=== PATIENT | female | born 1970 | race Caucasian/White ===

== ENCOUNTER 2019-09-24 11:12 | Outpatient (CLI) | payer OTHER, SELFPAY ==
--- NOTE | ~2019-09-24 | XR_ITS ---
EXAMINATION: XR knee LT 3V DATE: 09/24/2019 12:25 INDICATION: Left knee pain TECHNIQUE: Three views of the left knee were obtained. COMPARISON: None. FINDINGS: Alignment is normal. No fracture or osteochondral lesion. There is mild tricompartmental os teoarthritis characterized by tiny marginal osteophytes. No joint effusion/synovitis. Soft tissues a re unremarkable. IMPRESSION: 1. Mild osteoarthritis. Reviewed, dictated and finalized at location A. RATHLETE IMPRESSION: 1. Mild osteoarthritis.
== END 2019-09-24 11:13 | disposition home or self-care (01) ==
LOC: ANHIMG 11:19
PROVIDERS: PCP Internal Medicine; Visit Provider Internal Medicine
DX: M17.12 Unilateral primary osteoarthritis, left knee (principal)
CPT/HCPCS: 73562

== ENCOUNTER 2020-10-09 09:16 | Outpatient (CLI) | payer OTHER, SELFPAY ==
--- NOTE | ~2020-10-09 | XR_ITS ---
EXAMINATION: XR chest 2V 10/09/2020 09:28 INDICATION: Personal history of nicotine dependence PROCEDURE: 2 view chest COMPARISON: 01/12/2019 FINDINGS: The lungs are clear. The cardiomediastinal silhouette is within normal limits. There are no pleural effusions. There is no pneumothorax suspected. IMPRESSION: 1: NO ACUTE CARDIOPULMONARY DISEASE. Reviewed, dictated and finalized at location B. AL WELFARE RESEARCH WORKER
== END 2020-10-09 09:17 | disposition home or self-care (01) ==
LOC: ANHIMG 09:19
PROVIDERS: PCP Internal Medicine; Visit Provider Nurse Practitioner
DX: Z12.2 Encounter for screening for malignant neoplasm of respiratory organs (principal); Z87.891 Personal history of nicotine dependence
CPT/HCPCS: 71046

== ENCOUNTER 2022-07-29 00:18 | Day surgery (SDC) | payer OTHER, SELFPAY ==
[2022-07-15 12:44] VITALS: BMI 36.6
--- NOTE | 2022-07-28 15:19 | PM.HPGS ---
History of Present Illness History of Present Illness Consent: Risks, benefits, and alternatives have been discussed and questions answered. Patient agrees to proceed with procedure. Chief complaint: neoplasm screening Narrative: Anne Marie Cm is a 51 year old female Referred for colon cancer screening. Review of Systems Review of Systems: All systems reviewed & are unremarkable except as noted in HPI and below PMFSH Past Medical History Medical History Former tobacco use Family History Family History Mother Patient's mother is in good health Sibling Patient's sister is in good health Patient's brother is in good health Father Family history of malignant neoplasm of bone Patient's father is Other Diabetes mellitus Family history of cardiovascular disease Social History Social History Smoking packs per day: 1 Smoking cigarettes per day: 20.0 Years smoked: 30 Smoking pack-years: 30.00 Smoking status: Former smoker Tobacco type: cigarettes Smoking end date: 04/24/16 Alcohol intake: never Alcohol use details: social Substance use: never Substance use type: does not use Living arrangements: with family Spiritual care concerns: No Meds Home Medications and Allergies Home Medications Medication Instructions Recorded Confirmed Type cholecalciferol (vitamin D3) 125 125 mcg PO DAILY 10/02/20 07/15/22 History mcg (5,000 unit) capsule omeprazole 20 mg capsule,delayed 20 mg PO DAILY 10/02/20 07/15/22 History release omega-3 acid ethyl esters 1 gram 1 cap PO DAILY #90 caps 04/05/22 07/15/22 Rx capsule (Lovaza) epinephrine 1 mg/mL injection kit 0.3 mg (0.3 mL) subcut Q20M PRN 04/13/22 07/15/22 Rx anaphylaxis #1 ea amlodipine 5 mg tablet (Norvasc) 5 mg PO DAILY #90 tabs 05/27/22 07/15/22 Rx ondansetron HCl 4 mg tablet 4 mg PO Q8H PRN nausea and 06/14/22 07/15/22 Rx vomiting #20 tabs valsartan 320 1 tablet PO DAILY #90 tabs 07/01/22 07/29/22 Rx mg-hydrochlorothiazide 12.5 mg tablet Allergies Allergy/AdvReac Type Severity Reaction Status Date / Time bee venom protein (honey bee) Allergy Severe Anaphylaxis Verified 07/29/22 09:46 erythromycin base Allergy Mild Heavy Verified 07/29/22 09:46 chest Exam Const: General: alert Orientation/consciousness: patient oriented x3 Resp: Auscultation: clear to auscultation bilaterally Cardio: Rhythm: regular rhythm GI: GI Palp: Yes Soft to palpation and No Tenderness to palpation present (GI) Neuro: General: patient oriented x3 Assessment and Plan Assessment and plan (1) Screening for colon cancer: Code(s): Z12.11 - Encounter for screening for malignant neoplasm of colon Status: Acute Assessment and Plan: Colonoscopy with possible biopsy or polypectomy or cautery or injection of substances.
[2022-07-29 09:48] VITALS: BP 139/89; PULSE 78; RESP 20; TEMP 36.2; O2SAT 98; BMI 36.8
[2022-07-29] MEDS: LACTATED RINGERS 1,000 ML 150 ML IV CONT (09:51)
--- NOTE | 2022-07-29 10:23 | WPDANESEPPF ---
Anes - Initial Pre Proc Eval Procedure: Operation Date: 07/29/22 10:30 Proposed Procedures p Screening Colonoscopy - James Onofre MD Date/Time: 07/29/22 10:23 Surgeon: James Onofre MD Pre Op Diagnosis: neoplasm screening Patient Data Age: 51 Gender: F Height: 1.57 m Weight: 91.3 kg Last Vital Signs Temp 36.2 C L 07/29/22 09:48 Pulse 78 07/29/22 09:48 Resp 20 07/29/22 09:48 BP 139/89 07/29/22 09:48 Pulse Ox 98 07/29/22 09:48 O2 Del Method Room Air 07/29/22 09:48 Allergies Allergy/AdvReac Type Severity Reaction Status Date / Time bee venom protein (honey bee) Allergy Severe Anaphylaxis Verified 07/29/22 09:46 erythromycin base Allergy Mild Heavy Verified 07/29/22 09:46 chest Home Medications Medication Instructions Recorded Confirmed Type cholecalciferol (vitamin D3) 125 125 mcg PO DAILY 10/02/20 07/15/22 History mcg (5,000 unit) capsule omeprazole 20 mg capsule,delayed 20 mg PO DAILY 10/02/20 07/15/22 History release omega-3 acid ethyl esters 1 gram 1 cap PO DAILY #90 caps 04/05/22 07/15/22 Rx capsule (Lovaza) epinephrine 1 mg/mL injection kit 0.3 mg (0.3 mL) subcut Q20M PRN 04/13/22 07/15/22 Rx anaphylaxis #1 ea amlodipine 5 mg tablet (Norvasc) 5 mg PO DAILY #90 tabs 05/27/22 07/15/22 Rx ondansetron HCl 4 mg tablet 4 mg PO Q8H PRN nausea and 06/14/22 07/15/22 Rx vomiting #20 tabs valsartan 320 1 tablet PO DAILY #90 tabs 07/01/22 07/29/22 Rx mg-hydrochlorothiazide 12.5 mg tablet Patient hx anesthesia problems: none Family hx anesthesia problems: none Results Review: All pre-operative results and documents have been reviewed as part of the pre-operative evaluation. [facility] Past Medical History Medical History Former tobacco use Gastroesophageal reflux disease Hypertension Family History Family History Mother Patient's mother is in good health Sibling Patient's sister is in good health Patient's brother is in good health Father Family history of malignant neoplasm of bone Patient's father is Other Diabetes mellitus Family history of cardiovascular disease Social History Social History Smoking packs per day: 1 Smoking cigarettes per day: 20.0 Years smoked: 30 Smoking pack-years: 30.00 Smoking status: Former smoker Tobacco type: cigarettes Smoking end date: 04/24/16 Alcohol intake: never Alcohol use details: social Substance use: never Substance use type: does not use Living arrangements: with family Spiritual care concerns: No Anes - Eval Final PreProcedure Day of Procedure 07/29/22 10:23 Patient weight: obese Heart: regular rate and rhythm Lungs: clear to auscultation Airway: Mallampati scale class II Neurological: alert and oriented Last oral intake: >/= 8 hours ASA classification: II Emergent: no Anesthetic plan: proceed Anesthesia type and monitoring: general GIVS and standard monitoring Results Review: All pre-operative results and documents have been reviewed as part of the pre-operative evaluation. Informed Consent: The patient's anesthetic plan and its attendant risks and benefits were discussed with the patient/family/POA. Questions were solicited and answers provided to the satisfaction of the patient/family/POA.
[2022-07-29 10:53] VITALS: BP 107/58; PULSE 87; RESP 18; O2SAT 98
[2022-07-29 11:03] VITALS: BP 119/70; PULSE 75; RESP 18; O2SAT 98
[2022-07-29 11:13] VITALS: BP 131/83; PULSE 74; RESP 20; O2SAT 98
== END 2022-07-29 11:24 | disposition home or self-care (01) ==
PROVIDERS: PCP Internal Medicine; Visit Provider Internal Medicine Gastroenterology
PROC: 0DJD8ZZ Inspection of Lower Intestinal Tract, Via Natural or Artificial Opening Endoscopic (ICD-10-PCS; CPT 45378; principal; 2022-07-29 10:30)
DX: Z12.11 Encounter for screening for malignant neoplasm of colon (principal); K63.5 Polyp of colon; I10 Essential (primary) hypertension; Z87.891 Personal history of nicotine dependence; E66.9 Obesity, unspecified; Z68.36 Body mass index [BMI] 36.0-36.9, adult; Z79.899 Other long term (current) drug therapy; Z80.8 Family history of malignant neoplasm of other organs or systems
CPT/HCPCS: 45380; 88305; J2704; J7120

== ENCOUNTER 2023-12-08 07:02 | Outpatient (CLI) | payer OTHER, SELFPAY ==
--- NOTE | ~2023-12-08 | MM_ITS ---
EXAMINATION: MM screening nkechi BI w jose HISTORY: Screening mammogram TECHNIQUE: Craniocaudal and mediolateral oblique 3-D tomosynthesis images were obtained and synthetic 2-D images were generated. CAD analysis was submitted and interpreted. COMPARISON: No prior mammogram is available for comparison at this institution. BREAST PARENCHYMAL COMPOSITION: There are scattered areas of fibroglandular density. FINDINGS: There is no evidence of suspicious mass, calcification, or architectural distortion to sugg est malignancy in either breast. IMPRESSION: 1. No mammographic evidence of malignancy. 2. Recommend routine screening mammography in one year. BI-RADS Category 1: Negative Reviewed, dictated and finalized at location A.
== END 2023-12-08 07:03 ==
LOC: MICIMG 07:03
PROVIDERS: PCP Obstetrics & Gynecology; Visit Provider Obstetrics & Gynecology
DX: Z12.31 Encounter for screening mammogram for malignant neoplasm of breast (principal)
CPT/HCPCS: 77063; 77067

== ENCOUNTER 2024-09-06 09:26 | Outpatient (CLI) | payer OTHER, SELFPAY ==
--- NOTE | ~2024-09-06 | MMUS_ITS ---
EXAMINATION: MM diagnostic nkechi BI w jose, US breast LT limited, US breast RT complete HISTORY: Palpable left breast abnormality. TECHNIQUE: Additional 3-D tomosynthesis images of the breasts were performed and synthetic 2-D images were generated. CAD analysis was submitted and interpreted. High resolution complete right and limit ed left breast ultrasound was performed. COMPARISON: Comparison to multiple prior studies sequentially, with oldest reviewed study dated Garcia rison to multiple prior studies sequentially, with oldest reviewed study dated 03/12/2019. . BREAST PARENCHYMAL COMPOSITION: Not dense: There are scattered areas of fibroglandular density. FINDINGS: MAMMOGRAPHIC FINDINGS: There are no suspicious masses, calcifications or architectural distortion in either breast to sugges t malignancy. ULTRASOUND: Complete US of all 4 quadrants of the right breast/s and retroareolar region was reviewed. Normal het erogeneous echotexture without focal solid or cystic mass. Limited left breast ultrasound: Normal heterogeneous echotexture without focal mass. IMPRESSION: 1. No evidence for malignancy in either breast. 2. Routine yearly screening mammogram and regular clinical breast examination are recommended. BI-RADS Category 1: Negative Reviewed, dictated and finalized at location B. L OPERATION MANAGER IMPRESSION: 1. No evidence for malignancy in either breast. 2. Routine yearly screening mammogram and regular clinical breast examination a re recommended. BI-RADS Category 1: Negative IMPRESSION: 1. No evidence for malignancy in either breast. 2. Routine yearly screening mammogram and regular clinical breast examination a re recommended. BI-RADS Category 1: Negative
== END 2024-09-06 09:27 | disposition home or self-care (01) ==
LOC: MICIMG 09:26
PROVIDERS: PCP Nurse Practitioner Family; Visit Provider Obstetrics & Gynecology
DX: R92.8 Other abnormal and inconclusive findings on diagnostic imaging of breast (principal); N63.25 Unspecified lump in the left breast, overlapping quadrants
CPT/HCPCS: 76641; 76642; 77062; 77066; G0279

== ENCOUNTER 2025-01-28 09:53 | Outpatient (CLI) | payer OTHER, SELFPAY ==
--- NOTE | 2025-01-28 10:36 | ECG_ITS ---
Test Date: 2025-01-28 10:55:08 Measurements Intervals [place] Rate: 65 P: -11 OK: 134 QRS: 14 QRSD: 96 T: 20 QT: 383 QTc: 400 Interpretive Statements SINUS RHYTHM WITH OCCASIONAL VENTRICULAR PREMATURE COMPLEXES INCOMPLETE RIGHT BUNDLE BRANCH BLOCK BASELINE ARTIFACT- I, II, III, AVR, AVF, V3-V5 BORDERLINE ECG No previous ECG available for comparison Electronically Signed On 01-28-2025 11:47:16 CDT by Craig Wright D.O.
--- OUTSIDE RECORDS SUMMARY | 2025-01-28 10:44 | XMS_ITS | Referral Summary ---
Author Organization [facility] Address [address] [place] [address] Care Team Providers Care Peoplesoft Functional Analyst Name Role Phone Tylor Rahman DO Primary Care Provider [phone] Allergies Active Allergy Reactions Criticality Noted Date Comments Bee Pollens Anaphylaxis High 04/09/2019 Erythromycin Medications cholecalcifer ol (VITAMIN D-3) 5,000 unit capsule Take 5,000 Units by mouth daily Active amLODIPine (NORVASC) 5 mg tablet Take 5 mg by mouth daily 02/08/20 22 Active omega-3 fatty acids (LOVAZA) 1 gram capsule Take 1 g by mouth daily 02/08/20 22 Active hydroCHLOROth iazide (HYDRODIURIL) 12.5 mg tablet hydrochlorothiazide 12.5 mg tablet Active EPINEPHrine 0.3 mg/0.3 mL auto-injectio n syringe epinephrine 0.3 mg/0.3 mL injection, auto-injector Active [place], 28, 0.15-0.02 mgx21 /0.01 mg x 5 per tablet Take 1 tablet by mouth daily 02/28/20 22 Active dexAMETHasone (DECADRON) 0.1 % ophthalmic solution dexamethasone sodium phosphate 0.1 % eye drops Active Active Problems Problem Noted Date Diagnosed Date Class 1 obesity due to exces s calories without serious comorbidity with body mass index (BMI) of 34.0 to 34.9 in adult 10/22/2019 Localized edema 05/08/2019 Abnormal stress test 04/09/2019 Dizziness 04/09/2019 Chronic fatigue 04/09/2019 Orthostasis 04/09/2019 Immunizations Immunization Administration Dates Next Due Pneumococcal Conjugate PCV 13 09/19/2014 Tdap 10/10/2014 Social History Tobacco Use Types Packs/Day Years Used Date Smoking Tobacco: Former Cigarettes Q uit: 04/25/2016 Smokeless Tobacco: Never Alcohol Use Standard Drinks/Week Comments Yes 0 (1 standard drink = 0.6 oz pur e alcohol) Comments No Sex and Gender Information Value Date Recorded Sex Assigned at Not on file 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 Gender Identity Not on file Sexual Orientation Not on file Last Filed Vital Signs Vital Sign Reading Time Taken Comments Blood Pressure 146/88 04/01/2022 8:25 AM CDT Pulse 73 04/01/2022 8:15 AM CDT Temperature 37 C (98.6 F) 03/04/2022 9:12 AM CDT Respiratory Rate 16 04/09/2019 11:38 AM CDT Oxygen Saturation 95% 03/04/2022 9:12 AM CDT Inhaled Oxygen Concentration - - Weight 91.2 kg (201 lb) 04/01/2022 8:15 AM CDT Height 157.5 cm (5' 2) 04/01/2022 8:15 AM CDT Body Mass Index 36.76 04/01/2022 8:15 AM CDT Plan of Treatment Not on file Insurance [employer] Care Teams Peoplesoft Functional Analyst Relationship Specialty Start Date End Date Tylor Rahman DO PCP - General Internal Medicine 03/30/19
--- OUTSIDE RECORDS SUMMARY | 2025-01-28 10:44 | XMS_ITS | Clinical Summary ---
Author Organization [facility] Address [address] [place] [address] Care Team Providers Care Sap Pi Architect Name Role Phone Tylor Rahman DO Primary Care Provider [phone] Allergies Active Allergy Reactions Criticality Noted Date [...] Pneumococcal Conjugate PCV 13 09/19/2014 Tdap 10/10/2014 Surgical History Surgery Date Site/Laterality Comments OTHER SURGICAL HISTORY : Tubal Pregency Medical History Medical History Date Comments Dyslipidemia Family History Medical History Relation Name Comments Stent Brother 2 Coronary Stent Placement; Coronary artery disease Mother Larisa nary Artery Bypass Graft; Coronary artery disease Mother's Sister 2 Coronary Artery Bypass Graft; Relation Name Status Comments Brother 1 Alive Brother 2 Mother Alive Mother's Sister 1 Alive Mother's Sister 2 Social History Tobacco Use Types Packs/Day Years Used Date Smoking Tobacco: Former Cigarettes Q uit: 04/25/2016 Smokeless Tobacco: Never Alcohol Use Standard Drinks/Week Comments Yes 0 (1 standard drink = 0.6 oz pur e alcohol) Comments No Sex and Gender Information Value Date Recorded Sex Assigned at Not on file 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 Gender Identity Not on file Sexual Orientation Not on file Obstetrics History Last Filed Vital Signs Vital Sign Reading [...] 04/01/2022 8:15 AM CDT Plan of Treatment Health Maintenance Due Date Last Done Comments Breast Cancer Screening-Mammogram 1971 Cervical Cancer Screening 1971 Colon Cancer Screening-Colonoscopy 1971 Depression Screening 1971 Hepatitis C Screening 1971 Hepatitis B Screening 1989 Regular Well Visit/Exam 18-64 1989 Zoster Vaccine (1 of 2) 2021 DTaP/Tdap/Td Vaccine (2 - Td or Tdap) 10/10/2024 10/10/2014 Influenza Vaccine (Season Ended) 2025 Pneumococcal vaccine <65 Aged Out 09/19/2014 No longer eligible based on patient's age to complete this topic Insurance [employer] Care Teams Sap Pi Architect Relationship Specialty Start Date End Date Tylor Rahman DO PCP - General Internal Medicine 03/30/19
--- OUTSIDE RECORDS SUMMARY | 2025-01-28 10:44 | XMS_ITS | Clinical Summary ---
Author Organization [facility] Address [address] [place] [address] Care Team Providers Care Global Coordinator Name Role Phone Unavailable Primary Care Provider Unavailabl e Source Comments [facility],non-owned Affiliates and Associated Physician Practices is amultiple site organization consisting of ambulatory clinics and hospital sitesin [place], [place], [place] and [place]. This disclosure is being madepursuant to the Care Everywhere program and may not contain all information available regarding this patient. Last updated 18.[facility] Allergies Active Allergy Reactions Criticality Noted Date Comments Erythromycin Other 10/26/2017 Chest pressure Medications * Be aware that medications may not be up to date on this document. Alwaysverify current medications with the patient. 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 Gender Identity Not on file Sexual Orientation Not on file Last Filed Vital Signs Vital Sign Reading Time Taken Comments Blood Pressure 130/86 10/26/2017 4:10 PM REMELT FURNACE EXPEDITER Pulse 94 07/10/2019 9:27 AM REMELT FURNACE EXPEDITER Temperature 36.7 C (98.1 F) 07/10/2019 9:27 AM REMELT FURNACE EXPEDITER Respiratory Rate 16 07/10/2019 9:27 AM REMELT FURNACE EXPEDITER Oxygen Saturation 97% 10/26/2017 4:10 PM REMELT FURNACE EXPEDITER Inhaled Oxygen Concentration - - Weight 83 kg (183 lb) 07/10/2019 9:27 AM REMELT FURNACE EXPEDITER Height 157.5 cm (5' 2) 07/10/2019 9:27 AM REMELT FURNACE EXPEDITER Body Mass Index 33.47 07/10/2019 9:27 AM REMELT FURNACE EXPEDITER Plan of Treatment Health Maintenance Due Date Last Done Comments COLOGUARD (AGES 45-75) - COL ON CA SCREENING 1971 COLON MONITORING 1971 COLONOSCOPY - COLON CA SCREENING 1971 CT COLONOGRAPHY - COLON CA SCREENING 1971 Colorectal Cancer Screening 1971 FIT - COLON CA SCREENING 1971 FLEX SIG - COLON CA SCREENING 1971 LIPID TESTING 1971 MAMMOGRAM 1971 HIV SCREENING 1986 HEPATITIS C SCREENING 08/06/1989 DTAP/TDAP/TD VACCINES (1 - Tdap) 1990 HEPATITIS B VACCINE (1 of 3 - 19+ 3-dose series) 1990 SCREENING FOR DIABETES 07/10/2019 PNEUMOCOCCAL VACCINE 50+ (1 of 1 - PCV) 2021 ZOSTER VACCINE (1 of 2) 2021 COVID-19 VACCINE (1 - 2023-2 5 season) 2024 DEPRESSION SCREENING 08/29/2024 INFLUENZA VACCINE (Season Ended) 2025 HIB VACCINE Aged Out No longer eligi ble based on patient's age to complete this topic HPV VACCINE Aged Out No longer eligi ble based on patient's age to complete this topic MENINGOCOCCAL (Group B) VACC INE SHARED DECISION-MAKING Aged Out No longer eligibl e based on patient's age to complete this topic MENINGOCOCCAL GROUPS A/C/Y/W VACCINE Aged Out No longer eligible b ased on patient's age to complete this topic Insurance [facility] [place] [address] [place] [address]
[2025-01-28 11:01] LABS: Basophils Absolute Auto 0.1 K/mm3 (0.0-0.1); Basophils Percent Auto 0.7 % (0.2-1.2); Eosinophils Absolute Auto 0.3 K/mm3 (0-0.3); Eosinophils Percent Auto 2.6 % (0-4.4); Hematocrit 42.3 % (37.0-47.0); Hemoglobin 13.6 g/dL (12.0-15.0); Immature Granulocyte Absolute 0.03 K/mm3 (0.00-0.031); Immature Granulocyte Percent A 0.3 % (0-0.5); Lymphocytes Absolute Auto 3.59 K/mm3 (0.9-3.2); Mean Corpuscular HGB Conc 32.2 g/dl (32-36); Mean Corpuscular Hemoglobin 29.1 pg (26-34); Mean Corpuscular Volume 90.6 fl (80-100); Mean Platelet Volume 10.6 fl (7.4-10.4); Monocytes Absolute Auto 0.8 K/mm3 (0.1-0.6); Monocytes Percent Auto 7.6 % (2.6-8.5); Neutrophils Absolute Auto 5.5 K/mm3 (1.3-6.7); Neutrophils Percent Auto 53.8 % (45.5-73.1); Platelet Count Result 266 k/mm3 (150-375); Red Blood Count 4.67 M/mm3 (4.2-5.4); Red Cell Distribution Width 13.4 % (11.5-14.5); White Blood Count 10.3 K/mm3 (4.5-10.0)
[2025-01-28 11:18] LABS: INR 0.9; Prothrombin Time 12.8 Seconds (11.1-14.7)
== END 2025-01-28 09:54 | disposition home or self-care (01) ==
LOC: ANHSURGERY 09:56
PROVIDERS: PCP Nurse Practitioner Family; Visit Provider Urology
DX: Z01.818 Encounter for other preprocedural examination (principal); I12.9 Hypertensive chronic kidney disease with stage 1 through stage 4 chronic kidney disease, or unspecified chronic kidney disease; N18.2 Chronic kidney disease, stage 2 (mild); I49.3 Ventricular premature depolarization; I45.10 Unspecified right bundle-branch block
CPT/HCPCS: 36415; 85025; 85610; 85730; 93005

== ENCOUNTER 2025-02-11 00:35 | Day surgery (SDC) | payer OTHER, SELFPAY ==
[2025-01-28 09:59] VITALS: BMI 36.3
--- NOTE | 2025-01-28 10:00 | PC.NURSE ---
Report to the Outpatient Waiting Room, entrance under the green pavilion located off [facility], at time __6 AM on date _02/11/25 . Planned Procedure Time: _7:30 AM .? Time changes happen often and if your time is changed the preop area will call you the afternoon before. - You and your visitor will be asked to self-screen and do not enter if you have any COVID symptoms. Please call surgeon if you need to reschedule. - A mask is optional within the hospital at this time. Patients may have clear liquids (water, carbonated beverages, clear teas, apple juice) until 3 hours prior to surgery ( 4:30 AM) with a maximum of 20 ounces. - No food from midnight until time of surgery and no smoking, or chewing tobacco (or any form of nicotine). No chewing gum, candy or mints. Take only the following medications with a SIP of water on the morning of surgery: ____NONE DO NOT STOP ANY OF YOUR OTHER PRESCRIPTION MEDICATIONS PRIOR TO SURGERY EXCEPT THE FOLLOWING Hold all vitamins and supplements for 3 days per anesthesiologist.LAST DOSE 02/07/25 Medications to discontinue per physician NONE Please no make-up, nail swedish, hairspray, perfume, deodorant, or body powder the day of surgery.? No jewelry (including any body piercings) or valuables the day of surgery, leave them at home.? Please take a shower or bath the night before, or the morning of, surgery with an antibacterial soap.? Wear comfortable, loose fitting clothing.? Children are encouraged to wear pajamas. - Jewelry must be removed prior to entering the operating room.? Rings and piercings that are not removed may be cut off. - The hospital will not accept responsibility for valuables.? - Please leave all valuables, including medications, at home the day of surgery. If you are going home after surgery, a licensed rolloff truck driver must drive you home.? - NO public transportation without another adult if you receive anesthesia. - We recommend that an adult stay with you for 24 hours following discharge. - We also recommend that you do not drive, make important decision, drink alcoholic beverages, or take any drugs that were not prescribed by your health care provider for at least 24 hours after your discharge time. For Pediatric surgeries, we recommend two adults accompany the child home. Follow any additional instructions given to you from your surgeon. VERBAL AND WRITTEN instructions given to _PATIENT and asked if any additional questions and then verbalized understanding. Patient advised to call surgeon office or pre surgery nurse liaison [phone] if any additional questions.
[2025-01-28 10:38] VITALS: BP 141/86; PULSE 80; RESP 18; TEMP 36.6; O2SAT 98
--- NOTE | 2025-02-08 08:59 | P.HP_ITS ---
H&P: HPI History of Present Illness Date/Time: 02/08/25 08:59 Chief Complaint: Pelvic organ prolapse Narrative: Note:?Anne Marie Cm is a 54-year-old female who presents for a follow-up visit. She was last seen in April 2021, at which time she was status post urethral sling for stress incontinence, which had resolved. She reports noticing a bulge in her vaginal area, which she discovered while wiping. She denies any blood in her urine or signs of infection. She has not experienced any difficulty with urination despite the prolapse. Anne Marie mentions that the bulge is bothersome, particularly during sexual activity, and expresses interest in having it fixed. She has discussed the issue with Dr. Cuca Lantigua, who recommended she see Dr. Luevano again. Anne Marie is considering surgical options to address the prolapse. A bladder scan was performed to assess for incomplete bladder emptying as a potential cause of voiding symptoms or urinary tract infection. Notes rare incontinence without sensory awareness denies stress incontinence Previous sling procedure in 2020 Occult stress incontinence noted with prolapse reduction Review of Systems Review of Systems: All systems reviewed & are unremarkable except as noted in HPI and below PMFSH Past Medical History Medical History Screening mammogram, encounter for Tubal Hypertension Former tobacco use Gastroesophageal reflux disease Family History Family History Mother Patient's mother is in good health Sibling Patient's sister is in good health Patient's brother is in good health Father Family history of malignant neoplasm of bone Patient's father is Other Diabetes mellitus Family history of cardiovascular disease Social History Social History Social History: Caffeine-decaf coffee Smoking packs per day: 1 Smoking cigarettes per day: 20.0 Years smoked: 30 Smoking pack-years: 30.00 Smoking status: Former smoker Tobacco type: cigarettes Smoking end date: 08/29/15 Alcohol intake: current Alcohol use details: social, occasionally Substance use: never Substance use type: does not use Do You Feel Safe in your Home?: Yes Lack of Transportation: No Lack of Food: Never True Current Housing: I Have Housing Concerned About Future Housing: No Difficulty Paying Gas/Electric Bills: No Difficulty Paying for Meds: No Currently Unemployed: No Education: High School Diploma/GED Difficulty w/ Childcare or Family Care: No Living arrangements: with family Occupation/Education: occupation 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 Gender identity (if verbalized by the patient): Female Sexual Orientation (if Verbalized by the Patient): Straight or Heterosexual Spiritual care concerns: No Agree to blood products: Yes Meds Home Medications and Allergies Home Medications ?Medication ?Instructions ?Recorded ?Confirmed ?Type cholecalciferol (vitamin D3) 125 125 mcg PO DAILY 10/02/20 01/28/25 History mcg (5,000 unit) capsule valsartan 320 See Rx Instructions .Route 08/20/24 01/28/25 Rx mg-hydrochlorothiazide 12.5 mg .COMPLEX #90 tabs tablet metformin 500 mg tablet See Rx Instructions .Route 11/02/24 01/28/25 Rx .COMPLEX #90 tabs magnesium 200 mg tablet 200 mg PO DAILY 12/27/24 01/28/25 History omega-3 acid ethyl esters 1 gram See Rx Instructions .Route 01/22/25 01/28/25 Rx capsule .COMPLEX #90 caps atorvastatin 20 mg tablet See Rx Instructions .Route 01/25/25 01/28/25 Rx .COMPLEX #90 tabs amlodipine 5 mg tablet (Norvasc) 5 mg PO QPM 01/28/25 01/28/25 History fluoxetine 10 mg capsule (Prozac) 10 mg PO QPM 01/28/25 01/28/25 History omeprazole 20 mg capsule,delayed 20 mg PO QPM 01/28/25 01/28/25 History release epinephrine 1 mg/mL injection kit 1 mg subcut Q20M PRN anaphylaxis 02/04/25 Rx #2 ea semaglutide 2 mg/dose (8 mg/3 mL) 2 mg (0.75 mL) subcut WEEKLY #9 mL 02/05/25 Rx subcutaneous pen injector (Ozempic) Allergies Allergy/AdvReac Type Severity Reaction Status Date / Time bee venom protein (honey bee) Allergy Severe Anaphylaxis Verified 01/28/25 10:00 erythromycin base Allergy Mild Heavy Verified 01/28/25 10:00 chest Exam Narrative: Note:? - Obese - Minimal urethral mobility - No mesh exposure - Cystocele just beyond the introitus wi th minimal rectocele - Loss of apical support with the cervix descending to zero Assessment and Plan Assessment and plan (1) Cystocele with incomplete uterovaginal prolapse: Code(s): N81.2 - Incomplete uterovaginal prolapse Status: Acute (2) NITIN (stress urinary incontinence, female): Code(s): N39.3 - Stress incontinence (female) (male) Status: Acute Plan Note:?ASSESSMENT: - Pelvic organ prolapse - Incontinence without awareness PLAN: - We discussed the treatment options for pelvic organ prolapse, including observation, pelvic floor muscle exercises, physical therapy, pessary usage, and surgery, as well as each approach's specific risks and benefits. She opted for a sacral colpopexy. - She understood the risks of bleeding, infection, recurrence of prolapse, mesh exposure, damage to the bowel or urinary tract, open conversion, de candace urinary urgency, urinary retention, post-operative stress urinary incontinence, dyspareunia, back pain, diskitis, and risks of anesthesia. In addition, she was provided written information on the etiology and treatment of pelvic organ prolapse. - After an extensive discussion, she agreed to proceed with surgery. -possible concomitant urethral sling
--- NOTE | 2025-02-10 12:50 | P.HP_ITS ---
H&P: HPI History of Present Illness Date/Time: 02/10/25 12:50 Chief Complaint: prolapse Narrative: Anne Marie is a 54yo postmenopausal P2042, LMP 04/2023 who presents to discuss surgery. She has a normal pap 07/2024. She has a h/o BTL. She was taking Viorele for dysmenorrhea and menstrual migraines, but stopped it after being diagnosed with HTN; now on 3 HTN medications. She has not had a cycle since Apr 2023. She reports her hot flashes are back, but is mostly bothered by the mood changes; has been having issues at work with coworkers. She tried veozah but had issues with the script. She does feel like her prolapse has worsened; can feel a ball of tissue at the opening now; has more tugging/pulling sensations. She is not routinely sexually active. Had a sling placed by Dr. Luevano for NITIN in 2020; very happy with it. She saw Dr. Luevano again and is recommending we proceed with surgery to fix the prolapse and she's ready. Review of Systems Constitutional: Constitutional: Denies chills, Denies fever(s) and Denies headache(s) Eyes: Eyes: Denies change in vision ENT: Denies dizziness and Denies headache(s) Cardiovascular: Cardiovascular: Denies chest pain and Denies dyspnea Respiratory: Respiratory: Denies cough and Denies dyspnea Gastrointestinal: Gastrointestinal: Denies abdominal pain and Denies change in stool character Genitourinary: Genitourinary: Denies abnormal vaginal bleeding, Reports pelvic pain, Reports prolapse symptoms, Denies vaginal discharge, Denies vaginal odor and Denies vaginal pruritus Neurologic: Denies dizziness and Denies headache(s) Psychiatric: Psychiatric: Denies anxiety and Denies depression [facility] Past Medical History Medical History Screening mammogram, encounter for Tubal Hypertension Former tobacco use Gastroesophageal reflux disease Family History Family History Mother Patient's mother is in good health Sibling Patient's sister is in good health Patient's brother is in good health Father Family history of malignant neoplasm of bone Patient's father is Other Diabetes mellitus Family history of cardiovascular disease Social History Social History Social History: Caffeine-decaf coffee Smoking packs per day: 1 Smoking cigarettes per day: 20.0 Years smoked: 30 Smoking pack-years: 30.00 Smoking status: Former smoker Tobacco type: cigarettes Smoking end date: 08/29/15 Alcohol intake: current Alcohol use details: social, occasionally Substance use: never Substance use type: does not use Do You Feel Safe in your Home?: Yes Lack of Transportation: No Lack of Food: Never True Current Housing: I Have Housing Concerned About Future Housing: No Difficulty Paying Gas/Electric Bills: No Difficulty Paying for Meds: No Currently Unemployed: No Education: High School Diploma/GED Difficulty w/ Childcare or Family Care: No Living arrangements: with family Occupation/Education: occupation 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 Gender identity (if verbalized by the patient): Female Sexual Orientation (if Verbalized by the Patient): Straight or Heterosexual Spiritual care concerns: No Agree to blood products: Yes Meds Home Medications and Allergies Home Medications ?Medication ?Instructions ?Recorded ?Confirmed ?Type cholecalciferol (vitamin D3) 125 125 mcg PO DAILY 10/02/20 01/28/25 History mcg (5,000 unit) capsule valsartan 320 See Rx Instructions .Route 08/20/24 01/28/25 Rx mg-hydrochlorothiazide 12.5 mg .COMPLEX #90 tabs tablet metformin 500 mg tablet See Rx Instructions .Route 11/02/24 01/28/25 Rx .COMPLEX #90 tabs magnesium 200 mg tablet 200 mg PO DAILY 12/27/24 01/28/25 History omega-3 acid ethyl esters 1 gram See Rx Instructions .Route 01/22/25 01/28/25 Rx capsule .COMPLEX #90 caps atorvastatin 20 mg tablet See Rx Instructions .Route 01/25/25 01/28/25 Rx .COMPLEX #90 tabs amlodipine 5 mg tablet (Norvasc) 5 mg PO QPM 01/28/25 01/28/25 History fluoxetine 10 mg capsule (Prozac) 10 mg PO QPM 01/28/25 01/28/25 History omeprazole 20 mg capsule,delayed 20 mg PO QPM 01/28/25 01/28/25 History release epinephrine 1 mg/mL injection kit 1 mg subcut Q20M PRN anaphylaxis 02/04/25 Rx #2 ea semaglutide 2 mg/dose (8 mg/3 mL) 2 mg (0.75 mL) subcut WEEKLY #9 mL 02/05/25 Rx subcutaneous pen injector (Ozempic) Allergies Allergy/AdvReac Type Severity Reaction Status Date / Time bee venom protein (honey bee) Allergy Severe Anaphylaxis Verified 01/28/25 10:00 erythromycin base Allergy Mild Heavy Verified 01/28/25 10:00 chest Exam Const: General: cooperative, healthy appearing, comfortable and no acute distress Orientation/consciousness: patient oriented x3 Resp: Effort & Inspection: normal respiratory effort Cardio: Rate: regular rate GI: Inspection: normal to inspection GI Palp: No abdominal tenderness and Yes Soft to palpation : Other: deferred to OR Skin: General skin exam: normal color Neuro: General: patient oriented x3 Extrem: General: normal to inspection Psych: Appearance: grossly normal Affect: normal affect Attitude: cooperative Assessment and Plan Assessment and plan (1) Cystocele with incomplete uterovaginal prolapse: Code(s): N81.2 - Incomplete uterovaginal prolapse Status: Acute Plan - Proceed with combined case with Dr. Luevano to fix repairs; I will perform a robotic assisted supracervical laparoscopic hysterectomy with bilateral salpingectomy - Risks and benefits of surgery discussed in detail including but not limited to pain, bleeding, injury to nearby structures (bowel, bladder, ureter, ovary, blood vessels, nerves) or infection (skin, vaginal, pelvic). - I have also discussed the recommended time off and natural course of healing/downtime - pap normal 07/2024; concaver US normal 11/2024
[2025-02-11] VITALS (12 sets, daily range): BP systolic 125–152; BP diastolic 86–99; PULSE 64–95; RESP 14–18; TEMP 36.2–37; O2SAT 94–99
--- OUTSIDE RECORDS SUMMARY | 2025-02-11 00:37 | XMS_ITS | CONTINUITY OF CARE DOCUMENT ---
Author Name jared natashajaden Address Unknown Organization [facility] Address [address] [place] [address] Phone [phone] Care Team Providers Care Salesforce Trainer Name Role Phone Danna STEWART, [facility] Unavailable FARHAD GARCIA DO Unavailable [phone] FARHAD GARCIA DO Unavailable [phone] INSURANCE PROVIDERS Payer name Policy type / Coverage type [place] red constitution party ID CIGNA [facility] [employer] insurance [employer] [id number]
--- OUTSIDE RECORDS SUMMARY | 2025-02-11 00:37 | XMS_ITS | Referral Summary ---
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
--- OUTSIDE RECORDS SUMMARY | 2025-02-11 00:38 | XMS_ITS | Clinical Summary ---
Author Organization 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
--- OUTSIDE RECORDS SUMMARY | 2025-02-11 00:38 | XMS_ITS | Clinical Summary ---
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 Gender Identity Not on file Sexual Orientation Not on file Plan of Treatment Health Maintenance Due Date Last Done Comments Cervical Cancer Screening Pa p Smear (Age 30 to 64) Every 3 Years 1971 Colorectal Cancer Screening Colonoscopy (10 Years) 1971 Annual Physical 1974 Hepatitis C 1989 DTaP, Tdap and Td Vaccines ( 1 - Tdap) 1990 Hepatitis B Vaccines (1 of 3 - 19+ 3-dose series) 1990 Cervical Cancer Screening Pa p with HPV Testing (Age 30 to 64) Every 5 Years 2001 Cervical Cancer Screening with HPV 2001 Mammogram Screening 2011 Pneumococcal Vaccine: 50+ Ye ars (1 of 1 - PCV) 2021 Zoster Vaccines (1 of 2) 2021 COVID-19 Vaccine (2023-2 5 season) 2024 Meningococcal B Vaccine Aged Out No l onger eligible based on patient's age to complete this topic Meningococcal Vaccine Aged Out No delilah armani eligible based on patient's age to complete this topic RSV Immunizations Under 20 Months Aged Out No longer eligible based on patient's age to complete this topic
--- OUTSIDE RECORDS SUMMARY | 2025-02-11 00:38 | XMS_ITS | Clinical Summary ---
Author Organization [facility] Address [address] [place] [address] Care Team Providers Care Umbrella Supervisor Name Role Phone Unavailable Primary Care Provider Unavailabl e Source Comments [facility],non-owned Affiliates and Associated Physician Practices is amultiple site organization consisting of ambulatory clinics and hospital sitesin [place], [place], [place] and [place]. This disclosure is being madepursuant to the Care Everywhere program and may not contain all information available regarding this patient. Last updated 18.[facility] Allergies Active Allergy Reactions Criticality Noted Date [...] on file Legal Sex Female 8:55 AM HOGSHEAD SALVAGE Gender Identity Not on file Sexual Orientation Not on file Last Filed Vital Signs Vital Sign Reading Time Taken Comments Blood Pressure 130/86 10/26/2017 4:10 PM HOGSHEAD SALVAGE Pulse 94 07/10/2019 9:27 AM HOGSHEAD SALVAGE Temperature 36.7 C (98.1 F) 07/10/2019 9:27 AM HOGSHEAD SALVAGE Respiratory Rate 16 07/10/2019 9:27 AM HOGSHEAD SALVAGE Oxygen Saturation 97% 10/26/2017 4:10 PM HOGSHEAD SALVAGE Inhaled Oxygen Concentration - - Weight 83 kg (183 lb) 07/10/2019 9:27 AM HOGSHEAD SALVAGE Height 157.5 cm (5' 2) 07/10/2019 9:27 AM HOGSHEAD SALVAGE Body Mass Index 33.47 07/10/2019 9:27 AM HOGSHEAD SALVAGE Plan of Treatment Health Maintenance Due Date [...] patient's age to complete this topic Insurance [facility] [address] [place] [address]
--- NOTE | 2025-02-11 07:00 | WPDANESEPPF ---
Anes - Initial Pre Proc Eval Procedure: Operation Date: 02/11/25 07:30 Proposed Procedures p Robotic Sacrocolpopexy - Paulino Luevano MD s Robotic Assisted Laparoscopic Supracervical Hysterectomy with Bilateral Salpingectomy - Cuca Lantigua MD Date/Time: 02/11/25 07:00 Surgeon: Paulino Luevano MD Pre Op Diagnosis: Cystocele, Uterine Prolapse Patient Data Age: 54 Gender: F Height: 1.57 m Weight: 90.3 kg Last Vital Signs Temp 36.6 C 01/28/25 10:38 Pulse 80 01/28/25 10:38 Resp 18 01/28/25 10:38 BP 141/86 H 01/28/25 10:38 Pulse Ox 98 01/28/25 10:38 O2 Del Method Room Air 01/28/25 10:38 Allergies Allergy/AdvReac Type Severity Reaction Status Date / Time bee venom protein (honey bee) Allergy Severe Anaphylaxis Verified 01/28/25 10:00 erythromycin base Allergy Mild Heavy Verified 01/28/25 10:00 chest Home Medications ?Medication ?Instructions ?Recorded ?Confirmed ?Type cholecalciferol (vitamin D3) 125 125 mcg PO DAILY 10/02/20 01/28/25 History mcg (5,000 unit) capsule valsartan 320 See Rx Instructions .Route 08/20/24 01/28/25 Rx mg-hydrochlorothiazide 12.5 mg .COMPLEX #90 tabs tablet metformin 500 mg tablet See Rx Instructions .Route 11/02/24 01/28/25 Rx .COMPLEX #90 tabs magnesium 200 mg tablet 200 mg PO DAILY 12/27/24 01/28/25 History omega-3 acid ethyl esters 1 gram See Rx Instructions .Route 01/22/25 01/28/25 Rx capsule .COMPLEX #90 caps atorvastatin 20 mg tablet See Rx Instructions .Route 01/25/25 01/28/25 Rx .COMPLEX #90 tabs amlodipine 5 mg tablet (Norvasc) 5 mg PO QPM 01/28/25 01/28/25 History fluoxetine 10 mg capsule (Prozac) 10 mg PO QPM 01/28/25 01/28/25 History omeprazole 20 mg capsule,delayed 20 mg PO QPM 01/28/25 01/28/25 History release epinephrine 1 mg/mL injection kit 1 mg subcut Q20M PRN anaphylaxis 02/04/25 Rx #2 ea semaglutide 2 mg/dose (8 mg/3 mL) 2 mg (0.75 mL) subcut WEEKLY #9 mL 02/05/25 Rx subcutaneous pen injector (Ozempic) Laboratory Tests 02/11/25 06:48 Blood Type Pending Antibody Screen Pending Patient hx anesthesia problems: none Family hx anesthesia problems: none Results Review: All pre-operative results and documents have been reviewed as part of the pre-operative evaluation. [facility] Past Medical History Medical History Screening mammogram, encounter for Tubal Hypertension Former tobacco use Gastroesophageal reflux disease Family History Family History Mother Patient's mother is in good health Sibling Patient's sister is in good health Patient's brother is in good health Father Family history of malignant neoplasm of bone Patient's father is Other Diabetes mellitus Family history of cardiovascular disease Social History Social History Social History: Caffeine-decaf coffee Smoking packs per day: 1 Smoking cigarettes per day: 20.0 Years smoked: 30 Smoking pack-years: 30.00 Smoking status: Former smoker Tobacco type: cigarettes Smoking end date: 08/29/15 Alcohol intake: current Alcohol use details: social, occasionally Substance use: never Substance use type: does not use Do You Feel Safe in your Home?: Yes Lack of Transportation: No Lack of Food: Never True Current Housing: I Have Housing Concerned About Future Housing: No Difficulty Paying Gas/Electric Bills: No Difficulty Paying for Meds: No Currently Unemployed: No Education: High School Diploma/GED Difficulty w/ Childcare or Family Care: No Living arrangements: with family Occupation/Education: occupation 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 Gender identity (if verbalized by the patient): Female Sexual Orientation (if Verbalized by the Patient): Straight or Heterosexual Spiritual care concerns: No Agree to blood products: Yes Anes - Eval Final PreProcedure Day of Procedure 02/11/25 07:00 Patient weight: obese Heart: regular rate and rhythm Lungs: clear to auscultation Airway: Mallampati scale class II Neurological: alert and oriented Last oral intake: >/= 8 hours ASA classification: II Emergent: no Anesthetic plan: proceed Anesthesia type and monitoring: general ETT and standard monitoring Results Review: All pre-operative results and documents have been reviewed as part of the pre-operative evaluation. Informed Consent: The patient's anesthetic plan and its attendant risks and benefits were discussed with the patient/family/POA. Questions were solicited and answers provided to the satisfaction of the patient/family/POA.
--- NOTE | 2025-02-11 07:06 | WPDHPUPDATE1 ---
History and Physical Update Update Date/Time: 02/11/25 07:06 History and Physical has been reviewed, including an updated exam of the patient. There are NO changes in the patient's condition. Risks, benefits, and alternatives have been discussed and questions answered. Patient agrees to proceed with robotic assisted supracervical laparoscopic hysterectomy with bilateral salpingectomy .
[2025-02-11 07:09] LABS: Glucose Point of Care 89 mg/dl (65-105)
[2025-02-11] MEDS: LACTATED RINGERS 1,000 ML 30 ML IV CONT ×2 (07:10→10:29)
[2025-02-11] MEDS: ACETAMINOPHEN 500 MG TABLET 1000 MG PO (07:10)
[2025-02-11] MEDS: SCOPOLAMINE 1 MG PATCH 1 PATCH TRANSDERM (07:10)
--- NOTE | 2025-02-11 07:20 | WPDHPUPDATE1 ---
History and Physical Update Update Date/Time: 02/11/25 07:20 History and Physical has been reviewed, including an updated exam of the patient. There are NO changes in the patient's condition. Risks, benefits, and alternatives have been discussed and questions answered. Patient agrees to proceed with procedure. No need for NITIN procedure. Previous sling 2020
[2025-02-11] MEDS: metroNIDAZOLE 500 MG/ISO 100ML 500 MG/100 ML BAG 100 MG IVPB ×3 (07:30→23:53)
[2025-02-11] MEDS: ceFAZolin 2 GM/D5W 50 ML 2 GM/50 ML BAG IVPB (07:30)
[2025-02-11 07:39] LABS: BEDSIDEPREGUCG Negative (Negative)
[2025-02-11] MEDS: BUPIVACAINE/EPINEPHRINE 0.5% 30 ML VIAL 25 ML INFILTRATE (08:10)
--- NOTE | 2025-02-11 08:12 | S_PTH ---
PATIENT: Anne Marie Cm LOC: [facility] U#:[id number] AGE/SX: 54/F ROOM: RE02/11/[address]: Paulino Luevano MD : 1970 BED: DIS: 02/12/2025 SPEC #: [id number] RECD: 02/11/25 10:54 STATUS: LINETTE REQ #: [id number] MARCO: 02/11/25 08:[address]: Cuca Lantigua DEPT: [facility] Surgical RECD BY: Aracely Tobar ENTERED: 02/11/25 10:55 SP TYPE: Surgical OTHR DR: MD Pratibha Chandra, LOLA Tissues: A - Uterus Procedures: Hematoxylin and Eosin Stain Gross and Microscopic Level 5
--- NOTE | 2025-02-11 08:44 | W.PM.PROC2 ---
Procedure Note - Detailed Date of Procedure 02/11/25 Pre-op Diagnosis Cystocele, Uterine Prolapse Post-op Diagnosis Same Procedure Performed Robotic assisted supracervical hysterectomy with left salpingectomy and lysis of adhesions Surgeon Cuca Lantigua MD Dredge Deckhand Cecil Anesthesia General Findings Extensive omental adhesions from the umbilicus down to the bladder; taken down. Normal ovaries bilaterally. Normal uterus. Only half of the left tube remained after her BTL. Good hemostasis at end of case. Description of Procedure Anne Marie was taken to the operating room where she was placed under general anesthesia without issues. She received 2 g Ancef and 500mg Metronidazole. She was then prepped and draped in the usual sterile fashion in the dorsal lithotomy position with her legs in low Taco stirrups, her arms tucked at her side, with a strap over her chest. A time-out was performed with both Dr. Luevano and I in the room. Dr. Leuvano then scrubbed in and placed the 5 laparoscopic ports. The patient was then placed in steep Trendelenburg, with the legs slightly lowered. Dr. Luevano then docked the robot and placed the instruments intra-abdominally under direct visualization. I then went to the robotic console. The omental adhesions were slowly and carefully taken down; it took approximately 10 minutes to remove all the adhesions. I then started my hysterectomy on the right side. The ureter was easily identified transperitoneally and well out of the surgical field. The round ligament was clamped, coagulated, and transected. The uterine ovarian artery was then serially clamped, coagulated, and transected with good hemostasis. The broad ligament was then dissected anteriorly and posteriorly skeletonizing the uterine artery. The bladder flap was then developed on the right side and carried around the left, anteriorly. The uterine artery was then serially clamped and coagulated. Once the vessel was adequately coagulated, it was then transected with good hemostasis. I started the hysterectomy on the left side; she fallopian tube was elevated and the mesosalpinx was coagulated and transected. The round ligament was clamped, coagulated, and transected. The uterine ovarian artery was then serially clamped, coagulated, and transected with good hemostasis. The broad ligament was then dissected anteriorly and posteriorly skeletonizing the uterine artery. The bladder flap was completed from the left to the right. The uterine artery was then serially clamped and coagulated. Once the vessel was adequately coagulated, it was then transected with good hemostasis. The uterus was noted to be devascularized. The bladder flap was verified out of the surgical field and the uterus was transected from the cervix after cutting the uterus in half. Good hemostasis was noted. The uterus and left fallopian tubes were placed within a bag. All pedicles were once again examined and found to be hemostatic. Dr. Leuvano then took over the robot and continued his case to repair the prolapse. At the end of the case, my EBL was 20cc. Estimated Blood Loss 20 Pathology Yes (uterus and left fallopian tube) Complications No immediate complications Condition Stable Disposition No change [facility] Billing Surgery - Charge Forward: Surgery Billing
--- NOTE | 2025-02-11 10:18 | W.PM.PROC2 ---
Procedure Note - Detailed Date of Procedure 02/11/25 Pre-op Diagnosis Cystocele, Uterine Prolapse Post-op Diagnosis Same Procedure Performed Robotic assisted laparoscopic sacral colpopexy Cystoscopy Surgeon Paulino Luevano MD Anesthesia General Indications A woman with uterine prolapse as well as stress incontinence. She desires surgical correction. She is here for the above. She understands risks of bleeding, infection, diskitis, damage to surrounding organs, bowel injury, bowel obstruction, mesh related complications including exposure and extrusion, postoperative voiding dysfunction including incontinence and retention, need for ancillary procedures, dyspareunia, recurrence of prolapse, and other perioperative intraoperative postoperative complications. She agrees to proceed. She had a previous sling operation in 2020 and does not have concomitant stress incontinence. Findings See below Description of Procedure She was correctly identified. Informed consent obtained. She from the operating room. She was given general anesthesia. She was given appropriate perioperative antibiotics. She was placed a low lithotomy position. Pressure points were padded. A time-out performed. I marked out the skin 3 fingerbreadths cephalad to the umbilicus. I anesthetized the skin. I incised the skin. I dissected down to the fascia. I grasped the fascia with Jeff clamps. I entered the fascia sharply in a Vázquez type technique. I placed sutures for later fascial closure. I placed a midline trocar. I examined the abdomen. There is no sign of any injury. Under direct vision I placed 2 additional trocars in the right upper quadrant and 2 additional trocars the left upper quadrant. She was placed in steep Trendelenburg. The robot was docked. Her semiconductor packages sealer completed their portion of the procedure. Please see that operative report for details. I then sat at the console. The Sizer in the vagina created plane on the anterior and posterior vaginal wall. I took great care not to injure the vagina, bladder, or rectum. I introduced the mesh into the abdomen. I sewed the anterior leaflet of mesh on the anterior vaginal wall. I sewed the posterior leaflet of mesh on the posterior vaginal wall. This was done with several sutures of 2 0 [place]. I reflected the colon laterally. I opened the posterior peritoneum over the sacral promontory. I carried this into the cul-de-sac. I freed up the edges for later retroperitonealization. I located the anterior longitudinal ligament the sacrum. I cleaned off all fatty tissues. I then tensioned my mesh appropriately. I did a vaginal exam the bedside. I assured prolapse reduction without undue tension. I then sewed the proximal leaflet of mesh onto the anterior longitudinal ligament of the sacrum with 3 sutures of 2 0 [place]Kevin. I then used a 2 0 Monocryl to completely and meticulously retroperitonealized all mesh. I allowed the colon to go back to its normal anatomic location. There is no sign of any impingement. The specimen was then removed. All ports removed. Fascia was tied down. Skin was closed with Monocryl and surgical glue. I then performed cystoscopy. There was no tumors or surgical artifact. Both ureters were seen to excrete clear yellow urine. There is no surgical artifact in the bladder or urethra. I cut the excess sling material. Close incision with glue. She was awakened and transferred to PACU in stable condition. Implants Sacral colpopexy mesh Estimated Blood Loss 20 Packing No Pathology None sent Complications No immediate complications Condition Stable Disposition PACU
[2025-02-11] MEDS: fentaNYL CITRATE INJ (*CRX) 100 MCG/2 ML VIAL 25 MCG IV PUSH (10:44)
[2025-02-11 10:54] LABS: Glucose Point of Care 116 mg/dl (65-105)
--- NOTE | 2025-02-11 11:47 | ADMGEN ---
This patient, Anne Marie Cm, was admitted to OB 2nd Floor Room 292-00. Patient/family oriented to hospital policies and general routines including ID bracelet, bed and alarms, visiting hours, pain management, procedures, bathroom and other care routines, personal items, smoking policy, room service/diet, and visiting hours. Information on how to activate the Rapid Response Team has been discussed. Patient/Family are encouraged to report perceived risks to care and to ask questions if they do not understand what they are told or what they should do.
[2025-02-11] MEDS: KCL 20 MEQ/D5/0.45% SOD CHL 1,000 ML 100 ML IV CONT (12:50)
[2025-02-11 13:04] LABS: Glucose Point of Care 120 mg/dl (65-105)
[2025-02-11] MEDS: DOCUSATE SODIUM 100 MG CAPSULE PO (14:27)
[2025-02-11] MEDS: KETOROLAC 15 MG/ML VIAL (*BKC) IV PUSH (14:28)
[2025-02-11] MEDS: ACETAMINOPHEN 325 MG TABLET 650 MG PO (14:28)
[2025-02-11] MEDS: ceFAZolin 1 GM/NS 50 ML 1 GM/50 ML BAG IVPB ×2 (15:08→23:13)
[2025-02-11] MEDS: amLODIPine BESYLATE 5 MG TABLET PO (17:54)
[2025-02-11] MEDS: PANTOPRAZOLE 40 MG TABLET PO (17:54)
[2025-02-11 18:09] LABS: Glucose Point of Care 133 mg/dl (65-105)
[2025-02-12] MEDS: ACETAMINOPHEN 325 MG TABLET 650 MG PO (03:56)
[2025-02-12 04:00] VITALS: BP 138/77; PULSE 102; RESP 18; TEMP 37.7; O2SAT 96
[2025-02-12 05:14] LABS: Hematocrit 40.3 % (37.0-47.0); Mean Corpuscular HGB Conc 32.3 g/dl (32-36); Mean Corpuscular Hemoglobin 29.3 pg (26-34); Mean Corpuscular Volume 90.8 fl (80-100); Mean Platelet Volume 10.9 fl (7.4-10.4); Platelet Count Result 284 k/mm3 (150-375); Red Blood Count 4.44 M/mm3 (4.2-5.4); Red Cell Distribution Width 13.8 % (11.5-14.5); White Blood Count 10.4 K/mm3 (4.5-10.0)
[2025-02-12 05:20] LABS: Sodium 136 mmol/L (137-145)
[2025-02-12 05:21] LABS: Anion Gap 7 mmol/L (4-12); Blood Urea Nitrogen 8 mg/dL (7-17); Calcium 8.8 mg/dL (8.4-10.2); Carbon Dioxide 25 mmol/L (22-30); Chloride 104 mmol/L (98-107); Estimated CRCL calculation 83 ml/min; Estimated Glomerular Filt Rate > 60; Glucose 93 mg/dL (65-110); Potassium 3.9 mmol/L (3.4-5.0)
--- NOTE | 2025-02-12 07:23 | P.PNOB_ITS ---
PACK PRESS OPERATOR - A/P Assessment and plan (1) S/P laparoscopic supracervical hysterectomy: Code(s): Z90.711 - Acquired absence of uterus with remaining cervical stump Status: Acute Postoperative Procedures: Procedures Operation Date: 02/11/25 07:30 Actual Procedure Side Surgeon p Robotic Sacrocolpopexy Paulino Luevano MD p Robotic Assisted Laparoscopic Supracervical Hysterectomy with Left Salpingectomy Bilateral Cuca Lantigua MD Postoperative day: 1 Postoperative status: doing well Postoperative plan: routine post-op care and discharge Time Spent With Patient Time: Total time spent is greater than 50% in coordination of care (as documented) at patient's floor/unit and/or counseling patient: Time with patient: less than 15 minutes PACK PRESS OPERATOR- PN:Subj Post-Op Subjective Date/time seen: 02/12/25 07:13 Interval history: POD#1 Anne Marie reports doing well today. No issues overnight. Her pain is controlled with PO meds. She has tolerated regular diet. She denies any vaginal bleeding. She has voided. She has passed flatus. She has ambulated and denies any symptoms of anemia. Review of Systems Review of Systems: All systems reviewed & are unremarkable except as noted in HPI and below (HPI) Constitutional: Constitutional: Denies chills, Denies fever(s) and Denies headache(s) Eyes: Eyes: Denies change in vision ENT: Denies dizziness and Denies headache(s) Cardiovascular: Cardiovascular: Denies chest pain and Denies rapid heart rate Respiratory: Respiratory: Denies cough Genitourinary: Genitourinary: Denies abnormal vaginal bleeding Neurologic: Denies dizziness and Denies headache(s) Exam Const: General: cooperative, healthy appearing, comfortable and no acute distress Orientation/consciousness: patient oriented x3 Resp: Effort & Inspection: normal respiratory effort Auscultation: clear to auscultation bilaterally Cardio: Rate: regular rate GI: Inspection: normal to inspection and incision ( LSC incisions c/d/i) GI Palp: Yes abdominal tenderness (appropriate) and Yes Soft to palpation Auscultation: normal bowel sounds : Other: normal bleeding on pad Skin: General skin exam: normal color Neuro: General: patient oriented x3 Psych: Appearance: grossly normal Affect: normal affect Attitude: cooperative PACK PRESS OPERATOR - PN: Obj Data Vital Signs Vital Signs: Vital Signs - 24 hr 02/11/25 07:10 02/11/25 10:29 02/11/25 10:40 Temperature 97.4 F L 97.2 F L Pulse Rate 79 64 64 Respiratory Rate 14 16 16 Blood Pressure 143/99 H 125/86 135/88 Pulse Oximetry 98 96 94 Oxygen Delivery Room Air Simple Face Mask Simple Face Mask Oxygen Flow Rate 8 8 02/11/25 10:55 02/11/25 11:10 02/11/25 11:25 Temperature Pulse Rate 67 73 77 Respiratory Rate 18 18 18 Blood Pressure 152/86 H 146/90 H 149/88 H Pulse Oximetry 94 94 94 Oxygen Delivery Simple Face Mask Nasal Cannula Nasal Cannula Oxygen Flow Rate 8 2 2 02/11/25 11:38 02/11/25 11:50 02/11/25 11:55 Temperature 97.1 F L Pulse Rate 81 83 Respiratory Rate 18 16 Blood Pressure 150/90 H 148/87 H Pulse Oximetry 94 99 99 Oxygen Delivery Nasal Cannula Nasal Cannula Oxygen Flow Rate 2 2 Intake/Output Intake/Output: Intake & Output 02/08/25 02/09/25 02/10/25 02/11/25 23:59 23:59 23:59 23:59 Intake Total 0 Output Total 130 Balance -130 Meds/Results Medications: Active Medications Generic Name Dose Route Start Last Admin Trade Name Freq PRN Reason Stop Dose Admin Acetaminophen 650 mg 02/11/25 11:40 02/11/25 14:28 Acetaminophen 325 Mg Tablet PO 650 mg Q4H PRN Administration Mild Pain (1-3) or Fever Hydrocodone Bitart/Acetaminophen 1 tab 02/11/25 11:40 Hydrocodone/Acetaminophen (*Crx) 5-325 Mg Tablet PO Q4H PRN Pain Rated 4-5 Amlodipine Besylate 5 mg 02/11/25 18:00 Amlodipine Besylate 5 Mg Tablet PO QPM BENJA Atorvastatin Calcium 0 mg 02/12/25 09:00 Atorvastatin 20 Mg Tablet BY MOUTH DAILY BENJA Cephalexin HCl 500 mg 02/12/25 13:00 Cephalexin 500 Mg Capsule PO QID BENJA Dextrose 12.5 gm 02/11/25 11:40 Dextrose 50% 25 Gm/50 Ml Syringe IV PUSH PRN PRN Hypoglycemia Protocol Diphenhydramine HCl 25 mg 02/11/25 11:40 Diphenhydramine Hcl Inj 50 Mg/Ml Vial IV PUSH Q6H PRN Itching Docusate Sodium 100 mg 02/11/25 11:40 02/11/25 14:27 Docusate Sodium 100 Mg Capsule PO 100 mg DAILY BENJA Administration Enoxaparin Sodium 30 mg 02/12/25 09:00 Enoxaparin 30 Mg/0.3 Ml Syringe SUB-Q DAILY [facility] Fluoxetine HCl 10 mg 02/11/25 18:00 Fluoxetine Hcl 10 Mg Capsule PO QPM [facility] Glucagon 1 mg 02/11/25 11:40 Glucagon For Inj 1 Mg Vial IM PRN PRN Hypoglycemia Protocol Glucose 15 gm 02/11/25 11:40 Glucose Oral Gel 15 Gm Of Glucse In 37.5 Gm Tube PO PRN PRN Hypoglycemia Protocol Hydrochlorothiazide 12.5 mg 02/12/25 09:00 Hydrochlorothiazide 12.5 Mg Capsule PO QAM [facility] Potassium Chloride/Dextrose/Sod Cl 1,000 mls @ 100 mls/hr 02/11/25 11:40 02/11/25 12:50 Kcl 20 Meq/D5/0.45% Sod Chl IV CONT 100 mls/hr .Q10H BENJA Administration Cefazolin Sodium 1 gm in 50 mls @ 100 mls/hr 02/11/25 15:30 02/11/25 15:08 Ancef 1 Gm/Ns 50 Ml IVPB 02/12/25 07:59 100 mls/hr Q8H BENJA Administration Metronidazole 500 mg in 100 mls @ 100 mls/hr 02/11/25 15:30 Flagyl 500 Mg/Iso Soln 100 Ml IVPB Q8H [facility] Dextrose 1,000 mls @ 100 mls/hr 02/11/25 11:40 Dextrose 5% 1,000 Ml IVPB PRN PRN Hypoglycemia Protocol Insulin Aspart 3 - 6 units 02/11/25 12:00 02/11/25 13:12 Insulin Aspart (*Bkc) 100 Units/Ml SUB-Q Not Given TIDWM [facility] Protocol Ketorolac Tromethamine 15 mg 02/11/25 11:40 02/11/25 14:28 Ketorolac 15 Mg/Ml Vial (*Bkc) IV PUSH 15 mg Q8H PRN Administration Pain Rated 5 or Less Morphine Sulfate 2 mg 02/11/25 11:40 Morphine Sulfate (*Crx) 2 Mg/Ml Inj IV PUSH Q2H PRN Pain Rated 6 or Greater Ondansetron HCl 4 mg 02/11/25 11:40 Ondansetron Inj 4 Mg/2 Ml Vial IV PUSH Q6H PRN Nausea And Vomiting Pantoprazole Sodium 40 mg 02/11/25 18:00 Pantoprazole 40 Mg Tablet PO QPM BENJA Valsartan 320 mg 02/12/25 09:00 Valsartan 160 Mg Tablet PO QAM [facility] Zolpidem Tartrate 5 mg 02/11/25 11:40 Zolpidem Tartrate (*Crx) 5 Mg Tablet PO HS PRN Insomnia Labs Labs: Laboratory Results - last 24 hr 02/11/25 02/11/25 02/11/25 06:48 07:05 07:10 POC Capillary Glucose 89 POC Urine HCG, Qual Negative Blood Type B Positive Antibody Screen Negative 02/11/25 02/11/25 10:35 12:54 POC Capillary Glucose 116 H 120 H POC Urine HCG, Qual Blood Type Antibody Screen
[2025-02-12] MEDS: ceFAZolin 1 GM/NS 50 ML 1 GM/50 ML BAG IVPB (07:36)
[2025-02-12] MEDS: ENOXAPARIN 30 MG/0.3 ML SYRINGE SUB-Q (07:37)
[2025-02-12] MEDS: VALSARTAN 160 MG TABLET 320 MG PO (07:38)
[2025-02-12 07:44] VITALS: BP 132/84; PULSE 82; RESP 18; TEMP 37; O2SAT 98
[2025-02-12] MEDS: metroNIDAZOLE 500 MG/ISO 100ML 500 MG/100 ML BAG 100 MG IVPB (07:45)
== END 2025-02-12 09:58 | disposition home or self-care (01) ==
LOC: ANHSURGERY 08:35 → ANH2MED 05-09 08:23
PROVIDERS: Obstetrics & Gynecology; PCP Nurse Practitioner Family; Visit Provider Urology
PROC: (CPT 57425; principal; 2025-02-11 07:30)
PROC: 0UT94ZZ Resection of Uterus, Percutaneous Endoscopic Approach (ICD-10-PCS; CPT 57425; 2025-02-11 07:30)
DX: N81.4 Uterovaginal prolapse, unspecified (principal); D25.9 Leiomyoma of uterus, unspecified; N73.6 Female pelvic peritoneal adhesions (postinfective); N80.03 Adenomyosis of the uterus; N83.8 Other noninflammatory disorders of ovary, fallopian tube and broad ligament; N39.3 Stress incontinence (female) (male); Z79.85 Long-term (current) use of injectable non-insulin antidiabetic drugs; Z79.84 Long term (current) use of oral hypoglycemic drugs; E66.9 Obesity, unspecified; Z68.35 Body mass index [BMI] 35.0-35.9, adult; Z87.891 Personal history of nicotine dependence
CPT/HCPCS: 57425; 58542; S2900 ×2; 36415; 80048; 82948; 85027; 86850; 86900; 86901; 88307; A9270; C1781; J0690; J1596; J1650; J1836; J1885; J2003; J2250; J2371; J2405; J2704; J2710; J3010; J3480; J7030; J7120